=== PATIENT | male | born 1950 | race Caucasian/White ===

== ENCOUNTER 2018-11-25 10:29 | Outpatient (REF) | payer OTHER, SELFPAY ==
[2018-11-25 22:53] LABS: Anion Gap 8.3 mmol/L (3-11); BUN 25 mg/dL (7-18); CO2 27.7 mmol/L (21.0-32.0); CREATININE 1.08 mg/dL (0.70-1.30); Calcium 8.5 mg/dL (8.5-10.1); Chloride 108 mmol/L (98-107); Glucose 87 mg/dL (70-100); Potassium 4.5 mmol/L (3.5-5.1); Sodium 144 mmol/L (136-145)
== END 2018-11-25 10:49 ==
LOC: NCHCN 10:29
PROVIDERS: PCP Internal Medicine; Visit Provider Internal Medicine
DX: I25.810 Atherosclerosis of coronary artery bypass graft(s) without angina pectoris (principal); R73.9 Hyperglycemia, unspecified
CPT/HCPCS: 80048

== ENCOUNTER 2020-01-05 13:22 | Outpatient (REF) | payer OTHER, SELFPAY ==
[2020-01-05 20:59] LABS: Anion Gap 9.7 mmol/L (3-11); BUN 22 mg/dL (7-18); CO2 27.3 mmol/L (21.0-32.0); CREATININE 1.17 mg/dL (0.70-1.30); Calcium 8.6 mg/dL (8.5-10.1); Calculated LDL 52 mg/dL (<100); Chloride 106 mmol/L (98-107); Cholesterol 132 mg/dL (<200); Glucose 84 mg/dL (74-106); HDL Cholesterol 66 mg/dL (40-60); Potassium 4.3 mmol/L (3.5-5.1); Sodium 143 mmol/L (136-145); Triglyceride 72 mg/dL (<150)
== END 2020-01-05 13:42 ==
LOC: NCHCN 13:22
PROVIDERS: PCP Internal Medicine; Visit Provider Internal Medicine
DX: R73.9 Hyperglycemia, unspecified (principal); I25.810 Atherosclerosis of coronary artery bypass graft(s) without angina pectoris
CPT/HCPCS: 80048; 80061

== ENCOUNTER 2020-11-24 17:24 | Outpatient (REF) | payer OTHER, SELFPAY ==
[2020-11-24 18:46] LABS: Abs Immature Grans 0.02 10^3/uL (0.0-0.06); Absolute Basophil Count 0.05 10^3/uL (0.0-0.2); Absolute Eosinophil Count 0.19 10^3/uL (0.0-0.7); Absolute Lymphocyte Count 1.95 10^3/uL (1.2-3.4); Absolute Monocyte Count 0.64 10^3/uL (0.1-0.8); Absolute Neutrophil Count 3.26 10^3/uL (1.2-6.7); Basophils % 0.8; Eosinophils % 3.1; HCT 49.7 % (40.0-50.0); HGB 15.4 g/dL (13.5-17.5); Immature Grans % 0.3; Lymphocytes % 31.9; MCH 27.4 pg (27.0-33.0); MCV 88.3 fL (80-95); MPV 10.4 fL (8.0-11.0); Monocytes % 10.5; Neutrophils % 53.4; Nucleated RBC 0 %; Platelet Count 197 10^3/uL (130-400); RBC 5.63 10^6/uL (4.36-5.78); RDW 13.7 % (11.8-14.1); RDW-SD 44.7 fL; WBC 6.11 10^3/uL (4.4-10.8)
[2020-11-24 18:58] LABS: Anion Gap 6.5 mmol/L (3-11); BUN 27 mg/dL (7-18); CO2 29.5 mmol/L (21.0-32.0); CREATININE 1.2 mg/dL (0.70-1.30); Calcium 8.7 mg/dL (8.5-10.1); Calculated LDL 64 mg/dL (<100); Chloride 108 mmol/L (98-107); Cholesterol 138 mg/dL (<200); Glucose 91 mg/dL (74-106); HDL Cholesterol 64 mg/dL (40-60); Potassium 4.5 mmol/L (3.5-5.1); Sodium 144 mmol/L (136-145); Triglyceride 53 mg/dL (<150)
== END 2020-11-24 17:25 | disposition home or self-care (01) ==
LOC: NCHCN 17:24
PROVIDERS: PCP Internal Medicine; Visit Provider Internal Medicine
DX: I10 Essential (primary) hypertension (principal); E78.5 Hyperlipidemia, unspecified; I48.91 Unspecified atrial fibrillation; I42.9 Cardiomyopathy, unspecified
CPT/HCPCS: 80048; 80061; 85025

== ENCOUNTER 2021-11-24 19:28 | Outpatient (REF) | payer MEDICARE, SELFPAY ==
[2021-11-24 14:52] LABS: Abs Immature Grans 0.01 10^3/uL (0.0-0.06); Absolute Basophil Count 0.06 10^3/uL (0.0-0.2); Absolute Eosinophil Count 0.34 10^3/uL (0.0-0.7); Absolute Lymphocyte Count 1.65 10^3/uL (1.2-3.4); Absolute Monocyte Count 0.49 10^3/uL (0.1-0.8); Absolute Neutrophil Count 3.64 10^3/uL (1.2-6.7); Eosinophils % 5.5; HCT 45.9 % (40.0-50.0); HGB 14.6 g/dL (13.5-17.5); Immature Grans % 0.2; Lymphocytes % 26.7; MCH 27.2 pg (27.0-33.0); MCHC 31.8 % (32.0-36.0); MCV 86 fL (80-95); Monocytes % 7.9; Neutrophils % 58.7; Platelet Count 193 10^3/uL (130-400); RBC 5.37 10^6/uL (4.36-5.78); RDW 13.7 % (11.8-14.1); RDW-SD 42.5 fL; WBC 6.19 10^3/uL (4.4-10.8)
[2021-11-24 15:25] LABS: BUN 21 mg/dL (7-18); CREATININE 1.1 mg/dL (0.70-1.30); Calcium 8.9 mg/dL (8.5-10.1); Calculated LDL 52 mg/dL (<100); Chloride 106 mmol/L (98-107); Cholesterol 130 mg/dL (<200); Estimated GFR 72.22 (mL/min/1.73m2); Glucose 91 mg/dL (74-106); HDL Cholesterol 68 mg/dL (40-60); Potassium 4.8 mmol/L (3.5-5.1); Sodium 140 mmol/L (136-145); Triglyceride 53 mg/dL (<150)
== END 2021-11-24 19:29 | disposition home or self-care (01) ==
LOC: NCHCN 19:28
PROVIDERS: PCP Internal Medicine; Visit Provider Internal Medicine
DX: Z00.00 Encounter for general adult medical examination without abnormal findings (principal); E78.5 Hyperlipidemia, unspecified; I25.810 Atherosclerosis of coronary artery bypass graft(s) without angina pectoris; I48.91 Unspecified atrial fibrillation
CPT/HCPCS: 80048; 80061; 85025

== ENCOUNTER 2022-11-29 09:14 | Outpatient (REF) | payer MEDICARE, SELFPAY ==
[2022-11-29 22:21] LABS: HCT 46.3 % (40.0-50.0); HGB 14.8 g/dL (13.5-17.5); MCH 27.5 pg (27.0-33.0); MCV 86 fL (80-95); MPV 9.3 fL (8.0-11.0); Platelet Count 174 10^3/uL (130-400); RBC 5.39 10^6/uL (4.36-5.78); RDW 13.3 % (11.8-14.1); RDW-SD 41.7 fL; WBC 5.89 10^3/uL (4.4-10.8)
[2022-11-29 22:33] LABS: Anion Gap 7.2 mmol/L (3-11); BUN 23 mg/dL (7-18); CO2 25.8 mmol/L (21.0-32.0); CREATININE 1.2 mg/dL (0.70-1.30); Calculated LDL 59 mg/dL (<100); Chloride 107 mmol/L (98-107); Cholesterol 138 mg/dL (<200); Estimated GFR 64.65 (mL/min/1.73m2); Glucose 99 mg/dL (74-106); HDL Cholesterol 69 mg/dL (40-60); Potassium 4.5 mmol/L (3.5-5.1); Sodium 140 mmol/L (136-145); Triglyceride 52 mg/dL (<150)
[2022-11-30 21:47] LABS: PSA, Screening 1.8 ng/mL (<=6.5)
== END 2022-11-29 09:15 | disposition home or self-care (01) ==
LOC: NCHCN 09:14
PROVIDERS: PCP Internal Medicine; Visit Provider Internal Medicine
DX: Z00.00 Encounter for general adult medical examination without abnormal findings (principal); Z12.5 Encounter for screening for malignant neoplasm of prostate; I25.810 Atherosclerosis of coronary artery bypass graft(s) without angina pectoris; E78.5 Hyperlipidemia, unspecified
CPT/HCPCS: 80048; 80061; 84153; 85027

== ENCOUNTER 2023-12-03 08:24 | Outpatient (REF) | payer MEDICARE, SELFPAY ==
[2023-12-03 15:19] LABS: HCT 48.1 % (40.0-50.0); HGB 15.5 g/dL (13.5-17.5); MCH 27.6 pg (27.0-33.0); MCHC 32.2 % (32.0-36.0); MCV 86 fL (80-95); MPV 9.4 fL (8.0-11.0); Platelet Count 194 10^3/uL (130-400); RBC 5.61 10^6/uL (4.36-5.78); RDW 13.4 % (11.8-14.1); RDW-SD 42.2 fL; WBC 6.22 10^3/uL (4.4-10.8)
[2023-12-03 15:41] LABS: Anion Gap 6.2 mmol/L (3-11); BUN 22 mg/dL (7-18); CO2 28.8 mmol/L (21.0-32.0); CREATININE 1.2 mg/dL (0.70-1.30); Calculated LDL 51 mg/dL (<100); Chloride 110 mmol/L (98-107); Cholesterol 133 mg/dL (<200); Estimated GFR 64.25 (mL/min/1.73m2); Glucose 98 mg/dL (74-106); HDL Cholesterol 74 mg/dL (40-60); Sodium 145 mmol/L (136-145); Triglyceride 42 mg/dL (<150)
== END 2023-12-03 08:25 | disposition home or self-care (01) ==
LOC: NCHCN 08:24
PROVIDERS: PCP Internal Medicine; Visit Provider Internal Medicine
DX: I10 Essential (primary) hypertension (principal)
CPT/HCPCS: 80048; 80061; 85027

== ENCOUNTER 2024-12-03 08:29 | Outpatient (REF) | payer MEDICARE, SELFPAY ==
[2024-12-03 14:57] LABS: HCT 47.0 % (40.0-50.0); HGB 15.1 g/dL (13.5-17.5); MCH 27.5 pg (27.0-33.0); MCHC 32.1 % (32.0-36.0); MCV 86 fL (80-95); MPV 9.6 fL (8.0-11.0); Platelet Count 181 10^3/uL (130-400); RBC 5.49 10^6/uL (4.36-5.78); RDW 13.5 % (11.8-14.1); RDW-SD 42.2 fL; WBC 5.39 10^3/uL (4.4-10.8)
[2024-12-03 15:12] LABS: ALT 26 U/L (16-63); AST 23 U/L (15-37); Albumin 3.6 g/dL (3.4-5.0); Alkaline Phosphatase 77 U/L (46-116); Anion Gap 7.5 mmol/L (3-11); BUN 25 mg/dL (7-18); Bilirubin, Total 0.8 mg/dL (0.2-1.0); CO2 27.5 mmol/L (21.0-32.0); Calcium 8.7 mg/dL (8.5-10.1); Calculated LDL 53 mg/dL (<100); Chloride 107 mmol/L (98-107); Cholesterol 130 mg/dL (<200); Estimated GFR 70.88 (mL/min/1.73m2); Glucose 94 mg/dL (74-106); HDL Cholesterol 64 mg/dL (>or=40); Potassium 4.6 mmol/L (3.5-5.1); Sodium 142 mmol/L (136-145); Total Protein 6.5 g/dL (6.4-8.2); Triglyceride 69 mg/dL (<150)
== END 2024-12-03 08:30 | disposition home or self-care (01) ==
LOC: NCHCN 08:29
PROVIDERS: PCP Internal Medicine; Visit Provider Internal Medicine
DX: Z79.01 Long term (current) use of anticoagulants (principal); I10 Essential (primary) hypertension; E78.5 Hyperlipidemia, unspecified
CPT/HCPCS: 80053; 80061; 85027

== ENCOUNTER 2024-12-10 16:02 | Outpatient (REF) | payer MEDICARE, SELFPAY ==
[2024-12-10 18:03] LABS: COMMENT (LAB VIEW ONLY) 123.76 mg/dL; Microalb ug/mg Crea 12.4 ug/mg Cr
== END 2024-12-10 16:03 | disposition home or self-care (01) ==
LOC: NCHCN 16:02
PROVIDERS: PCP Internal Medicine; Visit Provider Internal Medicine
DX: I10 Essential (primary) hypertension (principal)
CPT/HCPCS: 82043; 82570